=== PATIENT | female | born 1970 | race Caucasian/White ===

== ENCOUNTER 2017-06-02 05:43 | Day surgery (SDC) | payer MEDICARE, MEDICAID ==
[~2017-06-02] VITALS: Ht 167.6 cm; Wt 113.1 kg
[~2017-06-02 05:43] MED LIST: AMBIEN CR 12.12.5 MG PO; DEXILANT60 MG PO
[2017-06-02] MEDS ORDERED: KLONOPIN 0.5MG0.5 MG PO (06:06)
[2017-06-02] MEDS ORDERED: MOBIC15 MG PO (06:07)
[2017-06-02 06:32] VITALS: BP 157/97; PULSE 67; TEMP 98.2
[2017-06-02 07:50] VITALS: BP 125/92; PULSE 73; TEMP 98
[2017-06-02 08:05] VITALS: BP 132/83; PULSE 61
[2017-06-02 08:20] VITALS: BP 146/72; PULSE 71
[2017-06-02 08:35] VITALS: BP 120/79; PULSE 62
[2017-06-02] MEDS ORDERED: TYLENOL W/COD1 UDTAB PO (08:39)
[2017-06-02 09:05] VITALS: BP 114/66; PULSE 68
== END 2017-06-02 09:35 | disposition home or self-care (01) ==
LOC: SDCO 05:43
DX: M65.4 Radial styloid tenosynovitis [de Quervain] (principal); M65.831 Other synovitis and tenosynovitis, right forearm; F41.9 Anxiety disorder, unspecified; M19.90 Unspecified osteoarthritis, unspecified site; J45.909 Unspecified asthma, uncomplicated; F32.9 Major depressive disorder, single episode, unspecified; M06.9 Rheumatoid arthritis, unspecified; G43.909 Migraine, unspecified, not intractable, without status migrainosus; E11.9 Type 2 diabetes mellitus without complications; K21.9 Gastro-esophageal reflux disease without esophagitis; M81.0 Age-related osteoporosis without current pathological fracture; Z90.49 Acquired absence of other specified parts of digestive tract; Z80.9 Family history of malignant neoplasm, unspecified; Z82.49 Family history of ischemic heart disease and other diseases of the circulatory system; Z90.710 Acquired absence of both cervix and uterus; Z82.61 Family history of arthritis; Z82.62 Family history of osteoporosis; Z82.5 Family history of asthma and other chronic lower respiratory diseases; Z68.41 Body mass index [BMI] 40.0-44.9, adult
CPT/HCPCS: J0670; J0690; J1200; J2250; J2405; J2704; J3010; J7120